=== PATIENT | female | born 1995 | race Hispanic/Latino ===

== ENCOUNTER 2024-02-13 02:13 | Day surgery (SDC) | payer MEDICAID, SELFPAY ==
[2024-02-04 14:46] VITALS: BP 130/82; PULSE 72; RESP 16; TEMP 36.7; O2SAT 97; BMI 40.6
--- NOTE | 2024-02-04 15:40 | PC.NURSE ---
Report to the Outpatient Waiting Room, entrance under the green pavilion located off [facility], at time __7:00AM on date ___02/13/24____. Planned Procedure Time: __9:00AM . Time changes happen often and if your time is changed the preop area will call you the afternoon before. - You and your visitor will be asked to self-screen and do not enter if you have any COVID symptoms. - A mask is optional within the hospital at this time. Patients may have clear liquids (water, carbonated beverages, clear teas, apple juice) until 3 hours prior to surgery with a maximum of 20 ounces. - No food from midnight until time of surgery. Take the following medications with a SIP of water the morning of surgery: ___NONE DO NOT STOP ANY OF YOUR OTHER PRESCRIPTION MEDICATIONS PRIOR TO SURGERY ?EXCEPT THE FOLLOWING Medications to discontinue per physician ___HOLD ALL VITAMINS/SUPPLEMENTS 3 DAYS PRE-OP PER ANESTHESIA Date to take last dose 02/09/24 Please no make-up, nail pashto, hairspray, perfume, deodorant, or body powder the day of surgery. No jewelry (including any body piercings) or valuables the day of surgery, leave them at home. Please take a shower or bath the night before, or the morning of, surgery with an antibacterial soap. Wear comfortable, loose fitting clothing. Children are encouraged to wear pajamas. - Jewelry must be removed prior to entering the operating room. Rings and piercings that are not removed may be cut off. - The hospital will not accept responsibility for valuables. - Please leave all valuables, including medications, at home the day of surgery. If you are going home after surgery, a licensed entry driver operator must drive you home. - NO public transportation without another adult if you receive anesthesia. - We recommend that an adult stay with you for 24 hours following discharge. - We also recommend that you do not drive, make important decision, drink alcoholic beverages, or take any drugs that were not prescribed by your health care provider for at least 24 hours after your discharge time. For Pediatric surgeries, we recommend two adults accompany the child home. Follow any additional instructions given to you from your surgeon. If you or anyone in your household have experienced Covid symptoms in the past week, please notify your surgeon or the nurse liaison at the phone number below for possible testing. Telephone instructions given to PATIENT and asked if any additional questions and then verbalized understanding. Patient advised to call surgeon office or pre surgery nurse liaison [phone] if any additional questions.
[2024-02-13] VITALS (9 sets, daily range): BP systolic 109–149; BP diastolic 72–88; PULSE 69–91; RESP 15–22; TEMP 36.4; O2SAT 97–100
--- NOTE | 2024-02-13 07:43 | P.PNAN_ITS ---
Anes - Initial Pre Proc Eval Procedure: Operation Date: 02/13/24 09:00 Proposed Procedures p Diagnostic Laparoscopy with Bilateral Salpingectomy - Eva Weaver DO Date/Time: 02/13/24 07:43 Surgeon: Eva Weaver DO Pre Op Diagnosis: Desires Sterilization Patient Data Age: 28 Gender: F Height: 1.45 m Weight: 83.8 kg Last Vital Signs Temp 36.4 C L 02/13/24 07:30 Pulse 85 02/13/24 07:30 Resp 18 02/13/24 07:30 BP 149/88 H 02/13/24 07:30 Pulse Ox 100 02/13/24 07:30 O2 Del Method Room Air 02/13/24 07:30 Allergies Allergy/AdvReac Type Severity Reaction Status Date / Time No Known Allergies Allergy Verified 02/13/24 07:38 Home Medications Medication Instructions Recorded Confirmed Type prenat.vits,blanca,kuv-ored-wgyah 1 tablet PO DAILY 02/04/24 02/13/24 History Patient hx anesthesia problems: none Family hx anesthesia problems: none Results Review: All pre-operative results and documents have been reviewed as part of the pre- operative evaluation. PMFSH Social History Social History Smoking status: Never smoker Living arrangements: with family Additional living arrangements comments: PARTNER AND 2 BABIES Spiritual care concerns: No Anes - Eval Final PreProcedure Day of Procedure 02/13/24 07:43 Patient weight: morbidly obese Heart: regular rate and rhythm Lungs: clear to auscultation Airway: Mallampati scale class II Neurological: alert and oriented Last oral intake: >/= 8 hours ASA classification: III Emergent: no Anesthetic plan: proceed Anesthesia type and monitoring: general ETT and standard monitoring Results Review: All pre-operative results and documents have been reviewed as part of the pre- operative evaluation. Informed Consent: The patient's anesthetic plan and its attendant risks and benefits were discussed with the patient/family/POA. Questions were solicited and answers provided to the satisfaction of the patient/family/POA.
[2024-02-13] MEDS: LACTATED RINGERS 1,000 ML 30 ML IV CONT ×2 (08:04→10:02)
[2024-02-13] MEDS: GABAPENTIN 300 MG CAPSULE PO (08:04)
[2024-02-13] MEDS: ACETAMINOPHEN 500 MG TABLET 1000 MG PO (08:04)
--- NOTE | 2024-02-13 08:09 | SUR.PREOP ---
UROLOGIC NURSE USED @[id number] REFERENCE #[id number]. PATIENT HAS NO QUESTIONS AT THIS TIME.
--- NOTE | 2024-02-13 08:14 | WPDHPUPDATE1 ---
History and Physical Update Update Date/Time: 02/13/24 08:14 History and Physical has been reviewed, including an updated exam of the patient. There are NO changes in the patient's condition. Risks, benefits, and alternatives have been discussed and questions answered. Patient agrees to proceed with procedure.
--- NOTE | 2024-02-13 08:14 | PM.IMHP ---
H&P: HPI History of Present Illness Date/Time: 02/13/24 08:14 Chief Complaint: I'm here to have my tubes out Narrative: Lidia presents desiring permanent sterilization with diagnostic laparoscopy, bilateral salpingectomy Review of Systems Review of Systems: All systems reviewed & are unremarkable except as noted in HPI and below PMFSH Social History Social History Smoking status: Never smoker Living arrangements: with family Additional living arrangements comments: PARTNER AND 2 BABIES Spiritual care concerns: No Meds Home Medications and Allergies Home Medications Medication Instructions Recorded Confirmed Type prenat.vits,blanca,acp-pklq-jjucy 1 tablet PO DAILY 02/04/24 02/13/24 History Allergies Allergy/AdvReac Type Severity Reaction Status Date / Time No Known Allergies Allergy Verified 02/13/24 07:38 Vital Signs Vital Signs - 24 hr 02/13/24 07:30 Temperature 36.4 C L Pulse Rate 85 Respiratory Rate 18 Blood Pressure 149/88 H Pulse Oximetry 100 Oxygen Delivery Room Air Assessment and Plan Assessment and plan (1) Sterilization: Code(s): Z30.2 - Encounter for sterilization Status: Acute Plan Diagnostic laparoscopy, bilateral salpingectomy
[2024-02-13] MEDS: BUPivacaine HCL 0.25% PF 30 ML VIAL 20 ML INFILTRATE (09:03)
--- NOTE | 2024-02-13 09:25 | P.OP_ITS ---
Procedure Note - Detailed Date of Procedure 02/13/24 Pre-op Diagnosis Desires Sterilization Post-op Diagnosis Same Procedure Performed Diagnostic laparoscopy, bilateral salpingectomy Surgeon Eva Weaver, DO Anesthesia General Indications Desires permanent sterilization Findings Normal appearing vulva and vaginal canal. Small cervix. Uterus sounded to 10cm. Internally, the liver, gallbladder and intestines were normal. In the pelvis, there was a right paratubal cyst. Both ovaries and tubes appeared normal. There was significant scarring at the bladder flap. Description of Procedure The patient was taken to the operating room where she was placed under general anesthesia. She was prepped and draped in the normal, sterile fashion. No preoperative antibiotics were indicated. A timeout was performed. The cervix was visualized using a speculum and the posterior aspect was grasped with an Allis. The cervix was dilated and sounded. The disposable uterine manipulator was placed. The speculum and Allis were removed. Gloves were changed and attention was turned to the abdomen. The skin above the umbilicus was grasped with two penetrating towel clamps and injected with local. A Veress needle was placed and the saline water drop test was performed to confirm intraperitoneal placement. CO2 insufflation was started and the abdomen was brought to a filling pressure of 15 mmHg. The Veress needle was then replaced with a 5 mm trocar which was inserted under direct visualization. Survey of the abdomen revealed no evidence of bowel or vascular injury upon entry. Additional port sites in the right and left lower quadrants were identified, injected and incised. 5 mm ports were inserted under direct visualization. The patient was then placed in steep Trendelenburg position. The right paratubal cyst was ruptured with the LigaSure. The tube was then cauterized and transected off using the LigaSure and was retrieved through the emergency medicine physician assistant port. They were procedure was repeated in identical fashion on the left-hand side. Once both specimens were removed, the pedicles were reinspected and found to be hemostatic. Of note there was a significant amount of scarring of the bladder flap due to the patient's previous sections. There were small gelatinous lesions over the surface of the uterus which could be inflammation or endometriosis. There were no cigarette burn type lesions noted around the abdomen. The instruments and trocars were then removed and the CO2 gas was allowed to escape. The incisions were closed with subcuticular 4-0 Monocryl and covered with skin glue. The patient was extubated and taken to the recovery room in stable condition. All instrument and sponge counts were correct at the conclusion of the procedure. Estimated Blood Loss 5 IV Fluids 800 Drains No Packing No Pathology Yes Complications No immediate complications Condition Stable Disposition PACU
[2024-02-13] MEDS: ONDANSETRON INJ 4 MG/2 ML VIAL IV PUSH (10:05)
[2024-02-13] MEDS: oxyCODONE HCL (*CRX) 5 MG TAB IR PO (11:04)
== END 2024-02-13 11:50 | disposition home or self-care (01) ==
PROVIDERS: Visit Provider Obstetrics & Gynecology Gynecologic Oncology
PROC: (CPT 49320; principal; 2024-02-13 09:00)
DX: Z30.2 Encounter for sterilization (principal); N83.8 Other noninflammatory disorders of ovary, fallopian tube and broad ligament; E66.01 Morbid (severe) obesity due to excess calories; Z68.41 Body mass index [BMI] 40.0-44.9, adult
CPT/HCPCS: 58661; 88302; A9270; J1100; J2250; J2405; J2704; J3010; J7120